=== PATIENT | male | born 2000 | race Caucasian/White ===

== ENCOUNTER 2022-09-21 01:13 | Inpatient (IN) | payer BC, SELFPAY ==
[2022-09-21 01:36] LABS: #Eosinphils 0.1 thou/uL (0.0-0.7); #Lymphocytes 2.7 thou/uL (1.20-3.40); #Monocytes 0.6 thou/uL (0.11-0.59); #Neutrophils 5.2 thou/uL (1.40-6.50); %Basophils 0.4 % (0.0-1.0); %Eosinophils 0.9 % (0.0-10.0); %Lymphocytes 31.5 % (28.0-48.0); %Monocytes 7.2 % (0.0-4.0); Hemoglobin 13.7 g/dL (14.0-18.0); Mean Corpuscular HGB CONC 34.5 g/dL (32.0-36.0); Mean Corpuscular Volume 98.5 fl (78.0-98.0); Mean Platelet Volume 7.8 fL (7.4-10.4); Platelet Count 196 10x3/uL (130-400); RBC Distribution Width 11.4 % (11.5-14.5); Red Blood Cell (RBC) Count 4.02 mill/uL (4.00-5.20); White Blood Cell (WBC) Count 8.7 10x3/uL (4.8-10.8)
[2022-09-21 01:37] LABS: Actual Bicarbonate (HCO3a) 21.2 mEq/L (22-28); CO2 Tension 48.2 mmHg (35.0-45.0); Calcium, Ionized (arterial) 1.09 mmol/L (1.12-1.30); Carboxyhemoglobin (COHb) 0.3 gm% (0.0-3.0); Hematocrit-ABG 40 % (42.0-52.0); Hemoglobin (Hb) 13.6 g/dL (11.4-15.4); O2 Tension (PaO2), arterial 262.8 mmHg (80.0-100.0); Potassium - ABG Lab 3.23 mmol/L (3.70-5.30); pH, Arterial 7.261 (7.35-7.45)
[2022-09-21 01:38] LABS: Analyzer IN Cardio ER
[2022-09-21] MEDS ORDERED: Thiamine HCl 100 MG, Folic Acid 1 MG in Dextrose 5 %-0.45 % NaCl 1,000 ML IVPB SCH (01:45)
[2022-09-21 01:48] LABS: Puncture Site RRA
[2022-09-21 01:58] LABS: Acetaminophen Less than 10.0 mcg/mL (10.0-30.0); Alcohol 279 mg/dL (Less than 10); Salicylate Less than 8.0 mg/dL (15.0-30.0)
[2022-09-21 02:01] LABS: ALT (SGPT) 22 U/L (8-55); AST (SGOT) 26 U/L (5-34); Alkaline Phosphatase 51 U/L (50-130); Anion Gap 15 mmol/L (10-20); BUN (Urea Nitrogen) 15 mg/dL (8.9-20.6); Bilirubin, Total 0.4 mg/dL (0.2-1.2); CK (CPK) 332 U/L (30-200); Calc. Creatinine Clearance 0 mL/min (70-130); Calcium 7.8 mg/dL (7.8-10.44); Carbon Dioxide 22 mmol/L (22-29); Chloride 108 mmol/L (98-107); Estimated GFR 127; Globulin 2.5 g/dL (2.4-3.5); Glucose 121 mg/dL (70-105); Protein, Total 6.5 g/dL (6.0-8.3); Sodium 142 mmol/L (136-145)
[2022-09-21] MEDS ORDERED: fentaNYL 50 mcg/mL 1 mL Vial ONE (02:01)
[2022-09-21] MEDS ORDERED: Fentanyl CADD 100 ML IV SCH (02:15)
[2022-09-21 02:50] LABS: Bilirubin Negative (Negative); Blood, Urine Negative (Negative); Clarity Clear (Clear); Glucose, Urine (Dipstick) Normal (Negative); Ketone, Urine Trace mg/dL (Negative); Leukocyte Negative Leu/uL (Negative); Nitrite Negative (Negative); Protein, Urine (Dipstick) Negative (Neg-Trace); Specific Gravity, Urine 1.011 (1.002-1.036); Urobilinogen Normal mg/dL (Less than 2); pH, Urine 5.5 (5.0-9.0)
[2022-09-21 02:59] LABS: Amphetamine Not Detected (NotDetected); Barbiturates Screen Not Detected (NotDetected); Benzodiazepine Screen Not Detected (NotDetected); Cocaine Metabolite Screen Not Detected (NotDetected); Methadone Not Detected (NotDetected); Methamphetamine Not Detected (NotDetected); Opiate Screen Not Detected (NotDetected); Oxycodone Screen Not Detected (NotDetected); Phencyclidine (PCP) Not Detected (NotDetected); THC/Cannabinoid Screen Detected (NotDetected); Tricyclic Screen Not Detected (NotDetected)
[2022-09-21] MEDS ORDERED: Ondansetron PF 4 MG/2 ML Vial IVP PRN (03:00)
[2022-09-21] MEDS ORDERED: Acetaminophen 325 MG TAB PER TUBE PRN (03:00)
[2022-09-21] MEDS ORDERED: Electrolyte Replacement Protocol 1 EACH IVPB PRN (03:03)
[2022-09-21] MEDS ORDERED: Propofol 1,000 MG/100 ML VIAL IV PRN (03:15)
[2022-09-21] MEDS ORDERED: Ventilator Sedation Protocol 1 EACH FS SCH (03:15)
[2022-09-21] MEDS ORDERED: Magnesium 2 GM/50 ML(in water) 2 GM in Premix Bag 1 BAG IVPB SCH (03:15)
[2022-09-21] MEDS ORDERED: Fentanyl BOLUS 250 ML IVPB PRN (03:15)
[2022-09-21] MEDS ORDERED: DISCONTINUE PREVIOUS NARCOTIC PAIN MEDICATIONS AND BENZODIAZEPINES FS SCH (03:15)
[2022-09-21] MEDS ORDERED: Morphine 2 MG/ML VIAL SLOW IVP PRN (03:15)
[2022-09-21] MEDS ORDERED: Potassium Bicarbonate/Cit Ac 20 MEQ TAB PO SCH ×2 (03:15→12:30)
[2022-09-21] MEDS ORDERED: Propofol BOLUS 1,000 MG/100 ML VIAL IV PRN (03:15)
[2022-09-21] MEDS ORDERED: Lorazepam 2 MG/ML VIAL SLOW IVP PRN (03:15)
[2022-09-21 03:57] VITALS: BMI 22.8
[2022-09-21] MEDS ORDERED: Famotidine 20 MG TAB PER TUBE SCH (09:00)
[2022-09-21 09:06] LABS: #Monocytes 0.8 thou/uL (0.11-0.59); #Neutrophils 7.2 thou/uL (1.40-6.50); %Basophils 0.4 % (0.0-1.0); %Eosinophils 0.3 % (0.0-10.0); %Lymphocytes 27.4 % (28.0-48.0); %Monocytes 7.3 % (0.0-4.0); %Neutrophils 64.6 % (31.0-61.0); Hemoglobin 13.3 g/dL (14.0-18.0); Mean Corpuscular HGB CONC 33.8 g/dL (32.0-36.0); Mean Corpuscular Hemoglobin 32.9 pg (25.0-35.0); Mean Corpuscular Volume 97.3 fl (78.0-98.0); Mean Platelet Volume 7.6 fL (7.4-10.4); Platelet Count 184 10x3/uL (130-400); RBC Distribution Width 11.4 % (11.5-14.5); Red Blood Cell (RBC) Count 4.05 mill/uL (4.00-5.20); White Blood Cell (WBC) Count 11.1 10x3/uL (4.8-10.8)
[2022-09-21 09:36] LABS: ALT (SGPT) 20 U/L (8-55); AST (SGOT) 26 U/L (5-34); Albumin 3.8 g/dL (3.5-5.0); Alkaline Phosphatase 45 U/L (50-130); BUN (Urea Nitrogen) 11 mg/dL (8.9-20.6); Bilirubin, Total 0.4 mg/dL (0.2-1.2); Calc. Creatinine Clearance 146 mL/min (70-130); Calcium 7.8 mg/dL (7.8-10.44); Carbon Dioxide 21 mmol/L (22-29); Chloride 108 mmol/L (98-107); Estimated GFR 128; Globulin 2.2 g/dL (2.4-3.5); Glucose 108 mg/dL (70-105); Magnesium 2.2 mg/dL (1.7-2.2); Potassium 3.1 mmol/L (3.5-5.1); Sodium 140 mmol/L (136-145)
[2022-09-21 09:40] LABS: Anion Gap 14 mmol/L (10-20)
[2022-09-21] MEDS ORDERED: Phenazopyridine HCl 100 MG TAB PO SCH ×2 (14:30→18:00)
[2022-09-21 16:34] VITALS: TEMP 97.8
[2022-09-22] MEDS ORDERED: Cyanocobalamin (Vitamin B-12) 1,000 MCG TAB PO SCH (09:00)
[2022-09-22] MEDS ORDERED: Folic Acid 1 MG TAB PO SCH (09:00)
[2022-09-22] MEDS ORDERED: Thiamine 100 MG TAB PO SCH (09:00)
== END 2022-09-21 16:55 | disposition home or self-care (01) | DRG 896 ==
LOC: ERS 01:13 → EDBD 01:13 → CCU 02:34
PROVIDERS: ADMIT Internal Medicine Nephrology; ATTEND Internal Medicine
PROC: HZ2ZZZZ Detoxification Services for Substance Abuse Treatment (ICD-10-PCS; principal; 2022-09-21)
PROC: 5A1935Z Respiratory Ventilation, Less than 24 Consecutive Hours (ICD-10-PCS; 2022-09-21)
PROC: 0D9670Z Drainage of Stomach with Drainage Device, Via Natural or Artificial Opening (ICD-10-PCS; 2022-09-21)
DX: F10.129 Alcohol abuse with intoxication, unspecified (principal); G92.8 Other toxic encephalopathy; J96.00 Acute respiratory failure, unspecified whether with hypoxia or hypercapnia; E87.1 Hypo-osmolality and hyponatremia; M62.82 Rhabdomyolysis; Y90.8 Blood alcohol level of 240 mg/100 ml or more; E87.6 Hypokalemia; Z78.1 Physical restraint status; Z79.899 Other long term (current) drug therapy
CPT/HCPCS: 36415; 36416; 36600; 70450; 71045; 72125; 80053; 80306; 80307; 81003; 82550; 82805; 83605; 83735; 84484; 85025; 93005; 94002; 94003; 94760; J1650; J2405; J3010; J3411; J3475; J7042